=== PATIENT | female | born 1950 | race Caucasian/White ===

== ENCOUNTER 2022-08-06 15:38 | Inpatient (IN) | payer OTHER, MEDICAID ==
[~2022-08-06] VITALS: Ht 152.4 cm; Wt 72.6 kg
[2022-08-06 15:53] VITALS: BP_SYST 220
[2022-08-06 17:03] LABS: BASOPHILS % (AUTO) 0.2 % (0.0-2.0); EOSINOPHILS % (AUTO) 0.1 % (0.0-4.0); HEMATOCRIT 33.6 % (36-48); HEMOGLOBIN 11.6 g/dL (12.0-16.0); LYMPHOCYTES # (AUTO) 0.5 K/uL (1.0-5.5); LYMPHOCYTES % (AUTO) 6.6 % (20.5-51.5); MEAN CORPUSCULAR HEMOGLOBIN 36 pg (27-31); MEAN CORPUSCULAR HGB CONC 35 % (32-36); MEAN CORPUSCULAR VOLUME 104 fL (79.0-98.0); MONOCYTES # (AUTO) 0.4 K/uL (0.0-1.0); NEUTROPHILS # (AUTO) 6.9 K/uL (1.8-7.7); NEUTROPHILS % (AUTO) 88.1 % (40.0-70.0); PLATELET COUNT (AUTO) 179 K/uL (130-430); RED BLOOD CELL COUNT(AUTO) 3.23 MIL/uL (4.2-6.2); RED CELL DISTRIBUTION WIDTH 16.9 % (9.0-15.0); WHITE BLOOD COUNT (AUTO) 7.8 K/uL (4.8-10.8)
[2022-08-06] MEDS ORDERED: hydrALAZINE HCL 20 MG/ML VIAL IVP ONE (17:15)
[2022-08-06 17:16] LABS: ANION GAP 15 (5-15); CALCIUM 8.6 mg/dL (8.4-11.0); CHLORIDE 98 mmol/L (98-107); GLUCOSE 95 mg/dL (70-99); UREA NITROGEN, BLOOD 52 mg/dL (8-21)
[2022-08-06 17:21] LABS: ALANINE AMINOTRANSFERASE 134 U/L (12-78); ALBUMIN 4.1 g/dL (3.4-4.8); ASPARTATE AMINOTRANSFERASE 81 U/L (10-37); TOTAL BILIRUBIN 1.2 mg/dL (0.0-1.0)
[2022-08-06 17:36] LABS: CREATININE 8.68 mg/dL (0.55-1.30)
[2022-08-06] MEDS ORDERED: cefTRIAXone 1 GM IVPB PREMIX 50 ML IV ONE (19:30)
[2022-08-06] MEDS ORDERED: D10W 250 ML IV SCH (20:00)
[2022-08-06] MEDS ORDERED: DEXTROSE 50% JECT 50 ML DISP.SYRIN ONE (20:08)
[2022-08-06] MEDS ORDERED: hydrALAZINE HCL 20 MG/ML VIAL ONE (20:38)
[2022-08-06] MEDS ORDERED: DEXTROSE 50% JECT 50 ML DISP.SYRIN IVP ONE (21:00)
[2022-08-06] MEDS ORDERED: INSULIN REGULAR, HUMAN 100 UNITS in NS 99 ML IV PRN ×2 (21:45)
[2022-08-06] MEDS ORDERED: D5/0.45 NS 1,000 ML IV SCH (21:45)
[2022-08-06] MEDS ORDERED: DEXTROSE 50% JECT 50 ML DISP.SYRIN IVP PRN (21:45)
[2022-08-06 22:19] LABS: CHOLESTEROL 163 mg/dL (<200); HDL CHOLESTEROL 80 mg/dL (>55); TRIGLYCERIDES 96 mg/dL (30-150)
[2022-08-06] MEDS ORDERED: ONDANSETRON 4 MG ODT TAB PO ONE (22:45)
[2022-08-06] MEDS ORDERED: ONDANSETRON HCL 4 MG/2 ML VIAL IVP ONE (22:45)
[2022-08-06] MEDS ORDERED: ACETAMINOPHEN 500 MG TABLET PO ONE (22:45)
[2022-08-07] MEDS ORDERED: D10W 1,000 ML IV SCH (01:00)
[2022-08-07] MEDS ORDERED: METOCLOPRAMIDE HCL 10 MG/2 ML VIAL IVP ONE (02:15)
[2022-08-07] MEDS ORDERED: ONDANSETRON HCL 4 MG/2 ML VIAL IVP PRN (05:30)
[2022-08-07] MEDS ORDERED: ACETAMINOPHEN 325 MG TABLET PO PRN (05:30)
[2022-08-07] MEDS ORDERED: cloNIDine HCL 0.1 MG TABLET ONE (05:32)
[2022-08-07] MEDS: cloNIDine HCL 0.1 MG TABLET PO PRN ×3 (05:33→13:10)
[2022-08-07] MEDS ORDERED: hydrALAZINE HCL 20 MG/ML VIAL IVP ONE (05:45)
[2022-08-07] MEDS ORDERED: NIFE-34 PO (06:58)
[2022-08-07] MEDS ORDERED: FOLI-43 PO (06:58)
[2022-08-07] MEDS ORDERED: LIP40 PO (06:58)
[2022-08-07] MEDS ORDERED: VALS160T2 PO (06:58)
[2022-08-07] MEDS ORDERED: FAMO40TA7 PO (06:58)
[2022-08-07] MEDS ORDERED: METO50TA7 PO (06:58)
[2022-08-07 07:52] LABS: BASOPHILS % (AUTO) 0.6 % (0.0-2.0); EOSINOPHILS % (AUTO) 0.1 % (0.0-4.0); HEMATOCRIT 29.2 % (36-48); HEMOGLOBIN 10.2 g/dL (12.0-16.0); LYMPHOCYTES # (AUTO) 0.7 K/uL (1.0-5.5); LYMPHOCYTES % (AUTO) 10.4 % (20.5-51.5); MEAN CORPUSCULAR HEMOGLOBIN 37 pg (27-31); MEAN CORPUSCULAR HGB CONC 35 % (32-36); MEAN CORPUSCULAR VOLUME 105 fL (79.0-98.0); MONOCYTES # (AUTO) 0.5 K/uL (0.0-1.0); MONOCYTES % (AUTO) 7.6 % (1.7-9.3); NEUTROPHILS # (AUTO) 5.5 K/uL (1.8-7.7); NEUTROPHILS % (AUTO) 81.3 % (40.0-70.0); PLATELET COUNT (AUTO) 114 K/uL (130-430); RED BLOOD CELL COUNT(AUTO) 2.79 MIL/uL (4.2-6.2); RED CELL DISTRIBUTION WIDTH 17.1 % (9.0-15.0); WHITE BLOOD COUNT (AUTO) 6.8 K/uL (4.8-10.8)
[2022-08-07 08:04] LABS: ANION GAP 11 (5-15); CALCIUM 7.5 mg/dL (8.4-11.0); CHLORIDE 96 mmol/L (98-107); GLUCOSE 256 mg/dL (70-99); UREA NITROGEN, BLOOD 56 mg/dL (8-21)
[2022-08-07 08:19] LABS: ALANINE AMINOTRANSFERASE 84 U/L (12-78); ALBUMIN 3.3 g/dL (3.4-4.8); ASPARTATE AMINOTRANSFERASE 48 U/L (10-37); TOTAL BILIRUBIN 0.9 mg/dL (0.0-1.0)
[2022-08-07 08:32] LABS: CREATININE 9.54 mg/dL (0.55-1.30)
[2022-08-07] MEDS ORDERED: ATROPINE SULFATE 0.4 MG/ML VIAL IVP ONE (19:30)
[2022-08-07] MEDS ORDERED: cefTRIAXone 1 GM in D5W 50 ML IV SCH (20:00)
[2022-08-07] MEDS ORDERED: amLODIPine BESYLATE 5 MG TABLET PO SCH (21:00)
[2022-08-07] MEDS ORDERED: ATROPINE SULFATE 0.4 MG/ML VIAL IVP PRN (21:15)
[2022-08-07] MEDS: cefTRIAXone 1 GM in D5W 50 ML IV SCH (22:52)
[2022-08-08 02:38] VITALS: BP_SYST 200
[2022-08-08 03:09] VITALS: BP_SYST 200
[2022-08-08] MEDS: cloNIDine HCL 0.1 MG TABLET PO PRN (03:19)
[2022-08-08] MEDS ORDERED: hydrALAZINE HCL 20 MG/ML VIAL IVP ONE (04:15)
[2022-08-08] MEDS: NIFEdipine 30 MG TAB.ER.24 PO SCH (04:17)
[2022-08-08] MEDS ORDERED: hydrALAZINE HCL 25 MG TABLET PO ONE (08:30)
[2022-08-08] MEDS ORDERED: VALSARTAN 160 MG TABLET (DIOVAN) PO SCH (09:00)
[2022-08-08 09:10] VITALS: BP_SYST 111
[2022-08-08] MEDS: LOSARTAN POTASSIUM 50 MG TABLET (COZAAR) PO SCH (09:20)
[2022-08-08] MEDS ORDERED: ASPIRIN 81 MG TAB.CHEW PO ONE (11:00)
[2022-08-08] MEDS ORDERED: hydrALAZINE HCL 25 MG TABLET PO SCH (14:00)
[2022-08-08] MEDS: INSULIN REGULAR, HUMAN 100 UNITS/ML, 3 ML VIAL (humuLIN R) SUBCUT PRN (17:32)
[2022-08-08 19:00] VITALS: BP_SYST 145
[2022-08-08 20:00] VITALS: BP_SYST 121
[2022-08-08] MEDS: cefTRIAXone 1 GM in D5W 50 ML IV SCH (20:48)
[2022-08-09] VITALS: BP_SYST 130
[2022-08-09 07:02] LABS: BASOPHILS % (AUTO) 0.6 % (0.0-2.0); EOSINOPHILS # (AUTO) 0.2 K/uL (0.0-0.4); EOSINOPHILS % (AUTO) 3.7 % (0.0-4.0); HEMATOCRIT 28.6 % (36-48); HEMOGLOBIN 9.9 g/dL (12.0-16.0); LYMPHOCYTES # (AUTO) 1.6 K/uL (1.0-5.5); LYMPHOCYTES % (AUTO) 24.5 % (20.5-51.5); MEAN CORPUSCULAR HEMOGLOBIN 36 pg (27-31); MEAN CORPUSCULAR HGB CONC 35 % (32-36); MEAN CORPUSCULAR VOLUME 104 fL (79.0-98.0); MONOCYTES # (AUTO) 0.6 K/uL (0.0-1.0); MONOCYTES % (AUTO) 9.7 % (1.7-9.3); NEUTROPHILS # (AUTO) 3.9 K/uL (1.8-7.7); NEUTROPHILS % (AUTO) 61.5 % (40.0-70.0); PLATELET COUNT (AUTO) 142 K/uL (130-430); RED BLOOD CELL COUNT(AUTO) 2.74 MIL/uL (4.2-6.2); WHITE BLOOD COUNT (AUTO) 6.3 K/uL (4.8-10.8)
[2022-08-09 07:11] LABS: ANION GAP 9 (5-15); CHLORIDE 98 mmol/L (98-107); GLUCOSE 152 mg/dL (70-99); UREA NITROGEN, BLOOD 39 mg/dL (8-21)
[2022-08-09 07:21] LABS: ALANINE AMINOTRANSFERASE 52 U/L (12-78); ALBUMIN 3.1 g/dL (3.4-4.8); ASPARTATE AMINOTRANSFERASE 27 U/L (10-37); CHOLESTEROL 122 mg/dL (<200); HDL CHOLESTEROL 55 mg/dL (>55); THYROID STIMULATING HORMONE 2.07 uIu/mL (0.34-4.82); TOTAL BILIRUBIN 0.8 mg/dL (0.0-1.0); TRIGLYCERIDES 99 mg/dL (30-150)
[2022-08-09 08:13] LABS: CREATININE 8.39 mg/dL (0.55-1.30)
[2022-08-09] MEDS ORDERED: ASPIRIN 81 MG TAB.CHEW PO SCH (09:00)
[2022-08-09 10:12] VITALS: BP_SYST 163
[2022-08-09] MEDS: LOSARTAN POTASSIUM 50 MG TABLET (COZAAR) PO SCH (10:16)
[2022-08-09] MEDS: NIFEdipine 30 MG TAB.ER.24 PO SCH (10:17)
[2022-08-09] MEDS: INSULIN REGULAR, HUMAN 100 UNITS/ML, 3 ML VIAL (humuLIN R) SUBCUT PRN (11:55)
[2022-08-09] MEDS ORDERED: DIPHENOXYLATE HCL/ATROP SULF 2.5 MG TAB PO PRN (14:15)
[2022-08-09 16:34] VITALS: BP_SYST 123
[2022-08-09 18:12] VITALS: BP_SYST 123
== END 2022-08-09 18:25 | disposition home or self-care (01) | DRG 871 ==
LOC: SED 15:38 → STU 21:43
PROVIDERS: ADMIT Internal Medicine; ATTEND Internal Medicine
PROC: 5A1D70Z Performance of Urinary Filtration, Intermittent, Less than 6 Hours Per Day (ICD-10-PCS; principal; 2022-08-07)
PROC: 5A1D70Z Performance of Urinary Filtration, Intermittent, Less than 6 Hours Per Day (ICD-10-PCS; 2022-08-09)
DX: A41.9 Sepsis, unspecified organism (principal); G93.41 Metabolic encephalopathy; N18.6 End stage renal disease; N39.0 Urinary tract infection, site not specified; I12.0 Hypertensive chronic kidney disease with stage 5 chronic kidney disease or end stage renal disease; E46 Unspecified protein-calorie malnutrition; E11.649 Type 2 diabetes mellitus with hypoglycemia without coma; E11.22 Type 2 diabetes mellitus with diabetic chronic kidney disease; M19.90 Unspecified osteoarthritis, unspecified site; I25.10 Atherosclerotic heart disease of native coronary artery without angina pectoris; Z20.822 Contact with and (suspected) exposure to COVID-19; R00.1 Bradycardia, unspecified; Z99.2 Dependence on renal dialysis; Z95.5 Presence of coronary angioplasty implant and graft; Z90.49 Acquired absence of other specified parts of digestive tract; Z68.31 Body mass index [BMI] 31.0-31.9, adult
CPT/HCPCS: 36415; 70450-TC; 71045; 76376; 80053; 80061; 82962; 83036; 83605; 83735; 83880; 84443; 84484; 85025; 87040; 87081; 90935; 93005; 93306; 96365; 96375; 99291; G0378; J0360; J0461; J0696; J1815; J2405; J2765; J7060